=== PATIENT | female | born 2000 | race Caucasian/White ===

== ENCOUNTER 2020-10-08 12:15 | Emergency (ER) | payer BC, SELFPAY ==
[2020-10-08 13:25] VITALS: BP 109/65; PULSE 83; RESP 18; TEMP 36.8; O2SAT 100; BMI 26.5
--- NOTE | 2020-10-08 14:11 | ED.ANIMALBIT ---
HPI - Animal Bite General Chief Complaint: Animal Bite Stated Complaint: thinks was bit by a bat Time Seen by Provider: 10/08/20 14:10 Source: patient Mode of arrival: ambulatory Limitations: no limitations History of Present Illness HPI narrative: 20-year-old female presents for bat exposure to right ankle that happened at 6:00 a.m. this morning. Patient was moving back into her college in the [employer], and there was a package on the porch, she bent over to flower picker a package. She felt something brush against her leg, and saw something fly away, she has 2 puncture chi on her right lateral ankle. She thinks it was a bat MD complaint: animal bite Onset (ago): hour(s) (9) Animal: bat Description of animal: wild animal Mechanism: bite Location - Extremities: right: lower leg Severity scale (1-10): 1 Context: unprovoked Associated symptoms: none Related Data Patient tetanus UTD: Yes Allergies Allergy/AdvReac Type Severity Reaction Status Date / Time No Known Allergies Allergy Verified 10/08/20 13:29 Review of Systems Constitutional: Constitutional: Denies body ache(s), Denies chills, Denies fatigue, Denies fever(s), Denies headache(s), Denies malaise and Denies weakness Eyes: Eyes: Denies diplopia ENT: Denies vertigo, Denies dizziness, Denies headache(s) and Denies throat swelling Cardiovascular: Cardiovascular: Denies chest pain, Denies syncope, Denies leg edema, Denies lightheadedness, Denies Loss of Consciousness, Denies palpitations and Denies dyspnea Respiratory: Respiratory: Denies chest congestion, Denies cough and Denies dyspnea Musculoskeletal: Musculoskeletal: Denies myalgias, Denies arthralgias, Denies joint swelling, Denies limited range of motion, Denies muscle weakness, Denies stiffness and Denies tingling Integumentary/Breasts: Skin/Breast: Denies erythema, Denies rash, Denies skin pain and Reports wounds (Two tiny puncture wounds lateral right ankle) Neurologic: Denies confusion, Denies vertigo, Denies dizziness, Denies syncope, Denies headache(s), Denies tingling and Denies weakness Psychiatric: Psychiatric: Denies anxiety, Denies confusion and Denies depression Endocrine: Endocrine: Denies fatigue and Denies palpitations Allergic/Immunologic: Allergic/Immunologic: Denies throat swelling PMFSH Past Medical History Medical History No known health problems Social History Social History Advance Directives: No Advance Directives Information Provided: No Patient : No Physical Exam Vital Signs: Vital Signs: Last Vital Signs Temp 98.3 F 10/08/20 13:25 Pulse 83 10/08/20 13:25 Resp 18 10/08/20 13:25 BP 109/65 10/08/20 13:25 Pulse Ox 100 10/08/20 13:25 Body Mass Index 26.5 Const: General: No confusion Nutritional Appearance: well nourished Orientation/consciousness: No confusion Limitations: no limitations Eyes: Pupils: Equal, round and reactive pupils present Neck: Neck: Yes full ROM, Yes no lymphadenopathy and Yes supple Resp: Effort & Inspection: normal respiratory effort and able to speak in complete sentences Auscultation: clear to auscultation bilaterally, no crackles, no rales, no rhonchi and no wheezes Cardio: Rate: regular rate Rhythm: regular rhythm Heart sounds: S1 normal heart sound present and S2 normal heart sound present GI: Inspection: Yes normal to inspection Palpation (GI): Soft to palpation, nontender, no guarding and not rigid Percussion: Yes normal to percussion Auscultation: normal bowel sounds Skin: General skin exam: no ecchymosis and no erythema Trauma: puncture (Two tiny puncture wounds lateral right ankle) Neuro: General: No confusion Cranial nerves: Yes Equal, round and reactive pupils present Extrem: Right lower extremity: full ROM, normal capillary refill and ankle Details: no edema, normal ROM and penetrating wound (Two tiny puncture wounds lateral right ankle); Negative for no tenderness, no swelling, no unusual warmth and no ecchymosis; No no edema Psych: Appearance: grossly normal Affect: normal affect Attitude: cooperative Thought process: Normal thought process present Course Course Course Narrative: A 20-year-old female who reports about exposure earlier this morning. On exam, patient has 2 small puncture wounds to her lateral right ankle. Gave rabies vaccination, and rabies immunoglobulin. Patient is up-to-date on her tetanus. Patient given rabies vaccinations series card to keep track of her next vaccination dates, patient counseled to go to short-stay for rabies vaccinations Discharge Plan Discharge Clinical Impression: Bite by animal Patient Disposition: Home, Self-Care Instructions: Rabies (ED) Additional Instructions: Please go to [facility] on the following dates to receive this series of the rabies vaccinations. October 11 of October 15 of October 22, and November 05. Please call your primary care provider to make them aware of your possible rabies exposure. Please take Tylenol or ibuprofen for pain. Please return to emergency room for any new or concerning symptoms.
[2020-10-08] MEDS: Rabies Vaccine (PCEC)/PF 1 ML VIAL IM (15:16)
[2020-10-08] MEDS: Rabies Immune Globulin/PF 900 UNIT/3 ML VIAL 1360.78 UNIT IM (15:20)
== END 2020-10-08 15:45 | disposition home or self-care (01) ==
PROVIDERS: Emergency Provider Emergency Medicine
DX: S91.031A Puncture wound without foreign body, right ankle, initial encounter (principal); W55.81XA Bitten by other mammals, initial encounter; Y93.89 Activity, other specified; Y92.214 College as the place of occurrence of the external cause; Y99.9 Unspecified external cause status; Z20.3 Contact with and (suspected) exposure to rabies
CPT/HCPCS: 90375; 90471; 90675; 96372; 99283

== ENCOUNTER 2020-10-11 08:12 | Outpatient (REF) | payer BC, SELFPAY | END 2020-10-11 08:13 | disposition home or self-care (01) | LOC: HO.MDS 08:12 | PROVIDERS: Visit Provider Emergency Medicine | DX: Z29.14 Encounter for prophylactic rabies immune globulin (principal); S91.051D Open bite, right ankle, subsequent encounter; W53.81XD Bitten by other rodent, subsequent encounter; Z20.3 Contact with and (suspected) exposure to rabies | CPT/HCPCS: 90471; 90675 ==

== ENCOUNTER 2020-10-15 07:26 | Outpatient (REF) | payer BC, SELFPAY | END 2020-10-15 07:27 | disposition home or self-care (01) | LOC: HO.MDS 07:26 | PROVIDERS: Visit Provider Emergency Medicine | DX: Z29.14 Encounter for prophylactic rabies immune globulin (principal); S91.051D Open bite, right ankle, subsequent encounter; W53.81XD Bitten by other rodent, subsequent encounter; Z20.3 Contact with and (suspected) exposure to rabies | CPT/HCPCS: 90471; 90675 ==

== ENCOUNTER 2020-10-22 08:49 | Outpatient (REF) | payer BC, SELFPAY | END 2020-10-22 08:50 | disposition home or self-care (01) | LOC: HO.MDS 08:49 | PROVIDERS: Visit Provider Emergency Medicine | DX: Z29.14 Encounter for prophylactic rabies immune globulin (principal); S91.051D Open bite, right ankle, subsequent encounter; W53.81XD Bitten by other rodent, subsequent encounter; Z20.3 Contact with and (suspected) exposure to rabies | CPT/HCPCS: 90471; 90675 ==